=== PATIENT | male | born 1950 | race Caucasian/White ===

== ENCOUNTER 2020-08-18 11:03 | Emergency (ER) | payer OTHER ==
[~2020-08-18] VITALS: Ht 170.2 cm; Wt 70.0 kg
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
[2020-08-18] MEDS ORDERED: SODIUM CHLORIDE FLUSH 10ML SYR IVF ONE (11:30)
[2020-08-18] MEDS ORDERED: SODIUM CHLORIDE 0.9% 1,000ML IVBOLUS ONE (11:30)
--- NOTE | 2020-08-18 11:38 | NUR ---
PT TO CT.
[2020-08-18 11:48] LABS: INTERNATIONAL NORMALIZED RATIO 3.48 (0.93-1.1)
[2020-08-18 11:52] LABS: BASOPHILS % (AUTO) 1 % (0-1); EOSINOPHILS % (AUTO) 1 % (1-7); LYMPHOCYTES % (AUTO) 8 % (22-44); MEAN CORPUSCULAR HEMOGLOBIN 29.2 pg (27.5-34.5); MEAN CORPUSCULAR HGB CONC 33.2 g/dL (33.2-36.2); MEAN PLATELET VOLUME 8.1 fL (7.4-10.4); MONOCYTES % (AUTO) 5 % (2-9); NEUTROPHILS % (AUTO) 86 % (42-75); PLATELET COUNT 296 x10^3/uL (130-400); RED BLOOD COUNT 4.98 x10^6/uL (4.38-5.82); RED CELL DISTRIBUTION WIDTH 14.6 % (9.4-14.8)
[2020-08-18 11:53] LABS: ALBUMIN 3.5 g/dL (3.4-5.0); ANION GAP 7 mmol/L (5-15); CALCIUM 9.2 mg/dL (8.5-10.1); CHLORIDE 107 mmol/L (98-107)
[2020-08-18 11:56] LABS: ALANINE AMINOTRANSFERASE 20 U/L (12-78); ALKALINE PHOSPHATASE 94 U/L (45-117); BILIRUBIN,TOTAL 0.5 mg/dL (0.2-1.0); CREATININE 1.39 mg/dL (0.7-1.3); TOTAL PROTEIN 6.5 g/dL (6.4-8.2)
[2020-08-18 12:13] LABS: PROTHROMBIN TIME 36.4 Seconds (9.6-11.5)
[2020-08-18 12:44] LABS: MD NO
[2020-08-18] MEDS ORDERED: SODIUM CHLORIDE 0.9%, 500ML IVBOLUS ONE (13:00)
--- NOTE | 2020-08-18 13:10 | NUR ---
REPORT GIVEN TO CARY WALLS. PT RESTING ON [facility] W/ CALL LIGHT IN REACH, RESP EVEN AND UNLABORED, JESS.
--- NOTE | 2020-08-18 13:25 | NUR ---
RECEIVED RPEORT FROM TITI GALINDO. PT RESTING ON [facility]. JESS. OFFICERS X2 REMAIN AT BEDSIDE.
--- NOTE | 2020-08-18 13:30 | NUR ---
PT UNABLE TO PROVIDE STOOL SAMPLE AT THIS TIME.
[2020-08-18 13:58] VITALS: BP 101/54
== END 2020-08-18 14:00 | disposition home or self-care (01) ==
LOC: ED 11:23
DX: S00.31XA Abrasion of nose, initial encounter (principal); S00.81XA Abrasion of other part of head, initial encounter; S09.90XA Unspecified injury of head, initial encounter; E86.0 Dehydration; W18.30XA Fall on same level, unspecified, initial encounter; Y93.01 Activity, walking, marching and hiking; Y92.89 Other specified places as the place of occurrence of the external cause; Y99.8 Other external cause status
CPT/HCPCS: 36415; 70450; 72125; 80053; 85025; 85610; 93005; 96360; 96361; 99285; J7030; J7040